=== PATIENT | female | born 1975 | race Caucasian/White ===

== ENCOUNTER 2025-06-27 09:51 | Outpatient (REF) | payer OTHER, SELFPAY ==
--- NOTE | ~2025-06-27 | XR_ITS ---
EXAMINATION: XR ELBOW 3 VIEWS RIGHT HISTORY: M19.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 FINDINGS: Three views of the right elbow are submitted. Osseous mineralization is normal. There is no fracture or dislocation. The joint spaces are preserved. The soft tissues are unremarkable. XR/XR elbow RT min 3V IMPRESSION: Unremarkable examination of the right elbow. Electronically signed by: Duglas Aquino MD 06/27/2025 11:07 AM EDT
[2025-06-27 12:36] LABS: Uric Acid 5.6 mg/dL (2.4-5.7)
--- OUTSIDE RECORDS SUMMARY | 2025-06-27 13:01 | XMS_ITS ---
Author Name [facility] Organization Unknown Care Team Organization Name Specialty Phone Email Start Date End [facility] Nevaeh Lundberg Primary Care 06/08/2023 04/23/2024 [facility] Hemalatha Duval Primary Care 07/13/20222023
== END 2025-06-27 09:52 | disposition home or self-care (01) ==
LOC: HO.XRAY 09:51
PROVIDERS: PCP Internal Medicine; Visit Provider Anesthesiology
DX: M19.021 Primary osteoarthritis, right elbow (principal); M35.3 Polymyalgia rheumatica; M10.9 Gout, unspecified
CPT/HCPCS: 36415; 73080; 84550; 85652; 86200; 86431

== ENCOUNTER 2025-06-27 09:51 | Outpatient (AMB) | payer OTHER, SELFPAY ==
--- NOTE | 2025-06-27 09:52 | A.OFFVIS_ITS ---
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 She reports this pain occurs to her as a flares up. She reports that she was under care of primary care physician and diagnosis of polymyalgia was established, however the patient Nevro went for ESR nor citrullinated peptide was tested. The patient never saw a medical researcher. Because of her pain she can not sleep normally. She is able to do activities of daily living she is able to take care of herself and she can function normally. 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 Weather changes in movements aggravate her pain. Heat application topical medication and oral medications make her pain slightly better. She never had physical therapy for this condition. In terms of tissue damage he describes her pain as dull aching heavy tiring and exhausting sensation. She received transforaminal epidural steroid injection on the right however she denies any help from this procedure. She was told that she has cervical disc herniation. She also went for physical therapy for neck but Nevro for presumable polymyalgia rheumatica. She had injections in the elbow area but it was not image guided. Her past medical history significant for headaches hypertension and depression. Past surgical history significant for and gallbladder surgery. She admits smoking cigarettes she stated that she stopped 9 days ago. When she is 1 month without cigarettes we can consider her on the way to smoke free. However this time she is still considered to be smoker. She admits alcohol, she admits coffee caffeinated beverages she denies recreational drugs. Review of Systems Const All systems reviewed & are unremarkable except as noted in HPI and below ENT Reports Normal hearing present Neuro Reports Normal hearing present, Denies Abnormal speech present, Denies confusion and Denies Sensory deficit (Neuro) Psych Denies confusion Physical Exam Vital Signs: Last Vital Signs Pulse 94 06/27/25 09:53 Resp 16 06/27/25 09:53 BP 145/83 H 06/27/25 09:53 Pulse Ox 97 06/27/25 09:53 Oxygen Delivery Method Room Air 06/27/25 09:53 BMI result Body Mass Index 32.9 Const General: no acute distress; No confusion Nutritional Appearance: obese morbidly obese Orientation/consciousness: patient oriented x3 and No confusion Eyes General: appearance normal, both eyes and all related structures Pupils: Equal, round and reactive pupils present EOM: EOMs intact bilaterally Neck Neck: Yes full ROM Chest Chest palpation & inspection: normal inspection of the chest Resp Effort & Inspection: normal respiratory effort, able to speak in complete sentences, normal respiratory pattern, no audible wheezes and no cough Cardio Jugular venous distension: no JVD GI Inspection: Yes normal to inspection Neuro General: patient oriented x3, gait normal and No confusion Cranial nerves: Yes CN's II-XII intact bilaterally, Yes Equal, round and reactive pupils present, Yes Normal hearing present and Yes Ability to bilaterally elevate shoulders present Speech: No Abnormal speech present Gait exam (Neuro): Normal gait present Motor exam (neuro): 5/5 motor strength present throughout Sensory Exam: No Sensory deficit (Neuro) Extrem General: No pedal edema Psych Speech and movement: Normal speech and movement present Affect: normal affect Attitude: cooperative Thought process: Normal thought process present Thought content: Normal thought content present Insight: Good insight present (Psych) Judgement: Good judgement present (Psych) Assessment & Plan Assessment & Plan (1) Polymyalgia rheumatica: Code(s): M35.3 - Polymyalgia rheumatica Category: Medical (2) Gout: Code(s): M10.9 - Gout, unspecified Category: Medical (3) Elbow arthritis: Code(s): M19.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 To establish the diagnosis I would need to see the citrullinated peptide level elevated and ESR elevated as well. I also suspect that this patient might have gout diagnosis. I you will refer this patient to medical researcher. Meanwhile I sent patient for elbow x-ray. I will see her here in 2 weeks and if there are any arthritic changes in the elbow I will be able to schedule her for intra-articular steroids injection image guided. Orders: Orders Cyclic Citrullinated Peptide Today M35.3 - Polymyalgia rheumatica Uric Acid, 24Hr Urine Group Today M10.9 - Gout, unspecified XR elbow RT min 3V Today M19.029 - Primary osteoarthritis, unspecified elbow Erythrocyte Sedimentation Rate Today M35.3 - Polymyalgia rheumatica Rheumatoid Factor Today M35.3 - Polymyalgia rheumatica Uric Acid Today M10.9 - Gout, unspecified Referrals Rheumatology Referral M10.9 - Gout, unspecified, M35.3 - Polymyalgia rheumatica Patient Instructions: I here by testify that I spent 45 minutes in conversation with this patient as well as planning her care and organizing this note. Coding Level of Care Code New Pt Level 4 (37339) Diagnoses Polymyalgia rheumatica M35.3 Gout M10.9 Elbow arthritis M19.029
[2025-06-27 09:53] VITALS: BP 145/83; PULSE 94; RESP 16; O2SAT 97; BMI 32.9
--- OUTSIDE RECORDS SUMMARY | 2025-06-27 11:18 | XMS_ITS | Clinical Summary ---
Author Organization [address] [facility] Address [address] [place] [address] Phone Care Team Providers Care Eap Specialist Name Role Phone Maria Eugenia Smith MD Primary Care Provider [phone] Allergies Active Allergy Reactions Criticality Noted Date Comments Amoxicillin Rash 06/08/2024 Amoxicillin [Amoxicillin Trihydrate Penicillins Rash 01/14/2006 rash Medications ibuprofen (ADVIL,MOTRIN) 800 mg tabletIndicati ons:prescribed by Juan Jose Self PA-c Take 1 tablet (800 mg total) by mouth every 8 (eight) hours if needed for mild pain. Active acetaminophen (TYLENOL) 500 mg tabletIndicati ons:juan jose self PA-c Take 2 tablets (1,000 mg total) by mouth every 6 (six) hours if needed for mild pain. Active amLODIPine (NORVASC) 5 mg tablet Take 1 tablet (5 mg total) by mouth 1 (one) time each day. 30 each 2 5 05/29/20 26 Active predniSONE (DELTASONE) 20 mg tablet Take 3 tablets daily x 3 days, then 2 tablets daily x 3 days then 1 tablet daily x 3 days 18 tablet 5 Active ergocalciferol (VITAMIN D-2) 1,250 mcg (50,000 unit) capsule Take 1 capsule (50,000 Units total) by mouth. 4 Active hydrOXYzine HCL (ATARAX) 25 mg tablet Take 1 tablet (25 mg total) by mouth 3 (three) times a day if needed for anxiety. for up to 360 days 05/29/20 25 Discontinued amLODIPine (NORVASC) 5 mg tablet TAKE 1 TABLET BY MOUTH EVERY DAY 90 tablet 1 5 05/29/20 25 Discontinued Active Problems Problem Noted Date Diagnosed Date Class 1 obesity 06/26/2025 HTN (hypertension), benign 05/29/2025 Class 1 obesity due to exces s calories without serious comorbidity with body mass index (BMI) of 33.0 to 33.9 in adult 10/22/2024 Panic disorder 06/07/2024 Bipolar 2 disorder ([facility] V24, [facility] V28) Anxiety 06/07/2024 Elevated blood pressure reading 11/17/2020 Fibroadenoma of breast 04/15/2011 Bipolar I disorder ([facility] V24, [facility] V28) Encounters Date Type Department Care Team Description 05/29/2025 2:00 PM EDT [facility] [address] [facility] [place] [address] She Beard, RENATO Polymyalgia ([facility] V24) (Primary Dx); Other fatigue; Generalized weakness; Blurry vision; HTN (hypertension), benign; Polyarthralgia; Vitamin D deficiency; Acute nonintractable headache, unspecified headache type from Last 3 Months Immunizations Immunization Administration Dates Next Due Influenza trivalent, 0.5mL, preservative free (Fluarix; FluLaval; Fluzone) ages 6mo and older (Afluria) 3 years and older 09/22/2024 Surgical History Surgery Date Site/Laterality Comments SECTION PROCEDURE: [place] DELIVERY ONLY; COMMENT: c/s x1 TUBAL LIGATION PROCEDURE: HISTORICAL TUBAL LIGATION OTHER SURGICAL HISTORY PROCEDURE: KS LAPS TX ECTOPIC PREG W/O SALPING&/OOPHORECTOMY; COMMENT: left ectopic with salpingectomy CHOLECYSTECTOMY PROCEDURE: HISTORICAL CHOLECYSTECTOMY SECTION PROCEDURE: HISTORICAL OTHER SURGICAL HISTORY Right PROCEDURE: ---- OTHER ----; COMMENT: removal fallopian tube, ectopic TUBAL LIGATION Left PROCEDURE: HISTORICAL TUBAL LIGATION Medical History Medical History Date Comments Depressive disorder, not els ewhere classified DX:Depressive disorder, not elsewhere classified Historical Medical DX DX:Unspeci fied ectopic Anxiety DX:Anxiety Panic disorder DX:Panic disorde r Bipolar 2 disorder (CMS/HCC V24, CMS/HCC V28) DX:Bipolar 2 disorder (HCC) HPV (human papilloma virus) infection DX:HPV (human papilloma virus) infection; COMMENT: in past Family History Medical History Relation Name Comments Coronary artery disease Father Heart attack Father late 40's Prostate cancer Father NC, hyperten radha, diabetes Cervical cancer Maternal Grandmother Breast cancer Mother Cervical cancer Sister Other: fibromylagia Sister Cancer of Small Bowel Neg Hx Colon cancer Neg Hx Kidney cancer Neg Hx Ovarian cancer Neg Hx Pancreatic cancer Neg Hx Uterine cancer Neg Hx Relation Name Status Comments Father Maternal Grandmother Mother Alive Sister Social History Tobacco Use Types Packs/Day Years Used Date Smoking Tobacco: Every Day Cigarettes Last attempted to quit: 09/05/2011 Smokeless Tobacco: Never Alcohol Use Standard Drinks/Week Comments Yes 0 (1 standard drink = 0.6 oz pur e alcohol) socially Interpersonal Safety Answer Date Record ed Physical Abuse Unrecognized value 08/14/2024 Verbal Abuse Unrecognized value 08/14/2024 Comments No Sex and Gender Information Value Date Recorded Sex Assigned at Female 08/14/2024 12:53 PM EST Legal Sex Female 1:03 PM EST Gender Identity Female 08/14/2024 12:53 PM EST Sexual Orientation Straight 08/14/2024 12 :53 PM EST Obstetrics History * This document contains information received from the source organization and may not represent a complete record from that organization. Para Term AB IAB SAB Ectopic Multiple Livin g Live Births 4 1 1 Date Outcome GA Total Labor Labor/2nd/3rd Weight Sex Type Anes PTL Shameka A1 A5 Name Clin Ectopic Para Last Filed Vital Signs Vital Sign Reading Time Taken Comments Blood Pressure 146/104 05/29/2025 1:59 PM EDT A Pulse 93 05/29/2025 1:59 PM EDT Temperature 36.6 C (97.9 F) 08/14/2024 2:36 PM EST Respiratory Rate 16 08/14/2024 2:48 PM EST Oxygen Saturation 98% 08/14/2024 3:04 PM EST Inhaled Oxygen Concentration - - Weight 82.1 kg (181 lb) 05/29/2025 1:59 PM EDT Height 160 cm (5' 3 ) 05/29/2025 1:59 PM EDT Body Mass Index 32.06 05/29/2025 1:59 PM EDT Plan of Treatment Upcoming Encounters Date Type Department Care Team (Late st Contact Info) Description 07/03/2025 1:30 PM EDT Office Visit Obstetrics & Gynecology - [facility] [address] [place] [id number] Miranda Lancaster, [facility] [address] [place] [phone] 11/26/2025 12:00 PM EDT Office Visit Internal Medicine - [address] [phone] Maria Eugenia Smith MD [address] [place] [address] Health Maintenance Due Date Last Done Comments Breast Cancer Screening 1975 Colorectal Cancer Screening: Colonoscopy 1975 DTaP,Tdap,and Td Vaccines (1 - Tdap) 1994 Hepatitis B Vaccines (1 of 3 - 19+ 3-dose series) 1994 Pneumococcal Vaccine: 50+ Ye ars (1 of 2 - PCV) 1994 Zoster Vaccines (1 of 2) 1994 Social Influencers of Health Screening 08/03/2022 Cholesterol Screening (Lipid Panel) 04/11/2024 04/11/2019 Depression Screening 09/05/2024 11/17/2018 COVID-19 Vaccine (2 - Pfizer risk series) 10/13/2024 09/22/2024 Influenza Vaccine (#1) 2025 09/22/2024 Hypertension/CHF/CAD Annual BMP Blood Test 05/29/2025 03/02/2024 Cervical Cancer Screening: HPV 11/17/2025 11/17/2020 RSV Immunization Adult Patie nts (1 - 1-dose 75+ series) 2050 HIV Screening Completed 07/22/2023 Hepatitis C Screening Completed 07/22/2023 HIB Vaccines Aged Out No longer eligi ble based on patient's age to complete this topic HPV Vaccines Aged Out No longer eligi ble based on patient's age to complete this topic Hepatitis A Vaccines Aged Out No long er eligible based on patient's age to complete this topic IPV Vaccines Aged Out No longer eligi ble based on patient's age to complete this topic MMR Vaccines Aged Out No longer eligi ble based on patient's age to complete this topic Meningococcal ACWY Vaccine Aged Out N o longer eligible based on patient's age to complete this topic Meningococcal B Vaccine Aged Out No l onger eligible based on patient's age to complete this topic RSV Immunization Patients Un petros 20 months Aged Out No longer eligible b ased on patient's age to complete this topic Varicella Vaccines Aged Out No longer eligible based on patient's age to complete this topic Procedures Procedure Name Priority Date/Time Associated Diagnosis Comments CBC WITH AUTO DIFFERENTIAL Routine 05/29/2025 2:27 PM EDT Polymyalgia ([facility] V24) RAHEEL IFA WITH TITER AND PATTERN Routine 05/29/2025 2:27 PM EDT Polymyalgia ([facility] V24) Polyarthralgia BORRELIA BURGDORFERI ANTIBODY Routine 05/29/2025 2:27 PM EDT Polymyalgia ([facility] V24) Polyarthralgia RHEUMATOID FACTOR Routine 05/29/2025 2:2 7 PM EDT Polymyalgia ([facility] V24) Polyarthralgia SEDIMENTATION RATE Routine 05/29/2025 2: 27 PM EDT Polymyalgia ([facility] V24) Polyarthralgia CBC AND DIFFERENTIAL Routine 05/29/2025 2:27 PM EDT Polymyalgia ([facility] V24) THYROID STIMULATING HORMONE WITH REFLEX TO FREE T4 AND FREE T3 Routine 05/29/2025 2:27 PM EDT Polymyalgia ([facility] V24) Other fatigue IRON AND TIBC Routine 05/29/2025 2:27 PM EDT Other fatigue HEMOGLOBIN A1C Routine 05/29/2025 2:27 PM EDT Other fatigue VITAMIN D 25 HYDROXY Routine 05/29/2025 2:27 PM EDT Other fatigue Vitamin D deficiency ANNUAL BMP BLOOD TEST Routine 03/02/2024 HEPATITIS C SCREENING Routine 07/22/2023 HIV SCREENING Routine 07/22/2023 HPV Routine 11/17/2020 LIPID PANEL Routine 04/11/2019 DEPRESSION SCREENING Routine 11/17/2018 from Last 3 Months or Most Recently Relevant to Health Maintenance Results * Thyroid stimulating hormone with reflex to free t4 and free t3 (05/29/2025 2:27 PM EDT) Pathologist [facility] TSH 1.14 0.40 - 4.00 mcIU/mL LAB CHEMISTRY METHOD 05/29/2025 7:33 PM EDT [facility] Blood Venous blood specimen / Unknown Venipuncture / Unknown 05/29/2025 2:27 PM EDT 05/29/2025 2:27 PM EDT She Beard MATERIALS MANAGEMENT CLERK LAB BLOOD ORDERABLES Final Resu lt [facility] [address] [place] [address], [place] [phone] * RAHEEL IFA with titer and pattern (05/29/2025 2:27 PM EDT) Pathologist [facility] RAHEEL Negative Negative 05/31/2025 1:32 PM EDT [facility] Comment:RAHEEL performed by ind irect immunofluorescence (IFA) using HEp-2 substrate. Blood Venous blood specimen / Unknown Venipuncture / Unknown 05/29/2025 2:27 PM EDT 05/29/2025 2:27 PM EDT us She Beard NP LAB BLOOD ORDERABLES Final Resu lt [facility] [address] [place] [address], * (ABNORMAL) CBC auto differential (05/29/2025 2:27 PM EDT) WBC 7.9 4.8 - 10.8 K/mcL LAB HEMETOLOGY METHOD 05/29/2025 6:38 PM EDT [facility] RBC 4.60 3.80 - 4.80 M/mcL LAB HEMETOLOGY METHOD 05/29/2025 6:38 PM EDT [facility] Hemoglobin 14.3 11.5 - 16.0 g/dL LAB HEMETOLOGY METHOD 05/29/2025 6:38 PM EDT [facility] Hematocrit 41.8 35.0 - 47.0 % LAB HEMETOLOGY METHOD 05/29/2025 6:38 PM EDT [facility] MCV 91.1 79.0 - 98.0 FL LAB HEMETOLOGY METHOD 05/29/2025 6:38 PM EDT [facility] MCH 31.2 27.0 - 32.0 pcg LAB HEMETOLOGY METHOD 05/29/2025 6:38 PM EDT [facility] MCHC 34.2 32.0 - 37.0 g/dL LAB HEMETOLOGY METHOD 05/29/2025 6:38 PM EDT [facility] RDW 11.9 11.0 - 15.0 % LAB HEMETOLOGY METHOD 05/29/2025 6:38 PM EDT [facility] Platelets 269 130 - 400 K/mcL LAB HEMETOLOGY METHOD 05/29/2025 6:38 PM EDT [facility] MPV 11.6(H) 7.0 - 11.0 FL LAB HEMETOLOGY METHOD 05/29/2025 6:38 PM EDT [facility] NRBC 0.0 <1.0 % LAB HEMETOLOGY METHOD 05/29[facility]2025 6:[facility] NR[facility] Absolute 0.00 <0.10 K/mcL LAB HEMETOLOGY METHOD 05/29/2025 6:38 PM EDT [facility] Neutrophils Relative 65.5 % LAB HEMETOLOGY METHOD 05/29/2025 6:38 [facility] Lymphocytes Relative 25.4 % LAB HEMETOLOGY METHOD 05/29/2025 6:38 PM [facility] Monocytes Relative 5.2 % LAB HEMETOLOGY METHOD 05/29/2025 6:38 PM [facility] Eosinophils Relative 2.5 % LAB HEMETOLOGY METHOD 05/29/2025 6:38 PM [facility] Basophils Relative 0.9 % LAB HEMETOLOGY METHOD 05/29/2025 6:38 PM [facility] Immature Granulocytes Relative 0.5 % LAB HEMETOLOGY METHOD 05/29/2025 6:38 PM [facility] Neutrophils Absolute 5.19 1.50 - 7.00 K/mcL LAB HEMETOLOGY METHOD 05/29/2025 6:38 PM EDT [facility] Lymphocytes Absolute 2.01 1.00 - 5.00 K/mcL LAB HEMETOLOGY METHOD 05/29/2025 6:38 PM EDT [facility] Monocytes Absolute 0.41 0.20 - 1.00 K/mcL LAB HEMETOLOGY METHOD 05/29/2025 6:38 PM [facility] Eosinophils Absolute 0.20 0.00 - 0.50 K/mcL LAB HEMETOLOGY METHOD 05/29/2025 6:38 PM EDT [facility] Basophils Absolute 0.07 0.00 - 0.20 K/[facility] LAB HEMETOLOGY METHOD 05/29/2025 6:38 PM EDT [facility] Immature Granulocytes Absolute 0.04(H) 0.00 - 0.03 K/[facility] LAB HEMETOLOGY METHOD 05/29/2025 6:38 PM EDT [facility] Blood Venous blood specimen / Unknown Venipuncture / Unknown 05/29/2025 2:27 PM EDT 05/29/2025 2:27 PM EDT She Beard NP LAB BLOOD ORDERABLES Final Resu lt Performing Organization Address City/[facility]/ZIP Co de Phone Number [facility] [address] [place] [address], [place] [phone] * Iron and TIBC (05/29/2025 2:27 PM EDT) [facility] Iron 98 40 - 150 mcg/dL LAB CHEMISTRY METHOD 05/29/2025 7:08 PM EDT [facility] TIBC 364 250 - 450 mcg/dL LAB CHEMISTRY METHOD 05/29/2025 7:08 PM EDT [facility] Iron Saturation 27 15 - 50 % LAB CHEMISTRY METHOD 05/29/2025 7:08 PM EDT [facility] Blood Venous blood specimen / Unknown Venipuncture / Unknown 05/29/2025 2:27 PM EDT 05/29/2025 2:27 PM EDT She Beard NP LAB BLOOD ORDERABLES Final Resu lt [facility] [address] [place] [address], [place] [phone] * Borrelia burgdorferi antibody (05/29/2025 2:27 PM EDT) Pathologist [facility] Lyme Ab Negative Negative LAB CHEMISTRY METHOD 05/30/2025 9:11 AM EDT [facility] Comment: No laboratory evidence of infection with B. burgdorferi (Lyme disease). Negative results may occur in patients recently infected (<=14 days) with B. burgdorferi. If recent infection is suspected, repeat testing on a new sample collected in 7- 14 days is recommended. Blood Venous blood specimen / Unknown Venipuncture / Unknown 05/29/2025 2:27 PM EDT 05/29/2025 2:27 PM EDT She Beard LAB BLOOD ORDERABLES Final Resu lt Performing Organization Address City/[facility]/ZIP Co de Phone Number [facility] [address] [place] [address], [place] [phone] * (ABNORMAL) Vitamin D 25 hydroxy (05/29/2025 2:27 PM EDT) [facility] Vit D, 25-Hydroxy 28.6(L) 30.0 - 80.0 ng/mL LAB CHEMISTRY METHOD 05/29/2025 7:33 PM EDT [facility] Blood Venous blood specimen / Unknown Venipuncture / Unknown 05/29/2025 2:27 PM EDT 05/29/2025 2:27 PM EDT She Beard LAB BLOOD ORDERABLES Final Resu lt Performing Organization Address City/[facility]/ZIP Co de Phone Number [facility] [address] [place] [address], [place] [phone] * Sedimentation rate (05/29/2025 2:27 PM EDT) [facility] Sed Rate 7 0 - 20 mm/hr LAB HEMETOLOGY METHOD 05/29/2025 6:32 PM EDT [facility] Blood Venous blood specimen / Unknown Venipuncture / Unknown 05/29/2025 2:27 PM EDT 05/29/2025 2:27 PM EDT us She Jeanti MATERIALS MANAGEMENT CLERK LAB BLOOD ORDERABLES Final Resu lt [facility] [address] [place] [address], [place] [phone] * Rheumatoid factor (05/29/2025 2:27 PM EDT) [facility] Rheumatoid Factor <10.0 <15.0 I Unit/mL LAB CHEMISTRY METHOD 05/29/2025 7:06 PM EDT [facility] Blood Venous blood specimen / Unknown Venipuncture / Unknown 05/29/2025 2:27 PM EDT 05/29/2025 2:27 PM EDT She Jeanti MATERIALS MANAGEMENT CLERK LAB BLOOD ORDERABLES Final Resu lt Performing Organization Address [facility]/ZIP Co de Phone Number [facility] [address] [place] [address], [place] [phone] * Hemoglobin A1c (05/29/2025 2:27 PM EDT) [facility] Hemoglobin A1C 5.6 <6.5 % LAB CHEMISTRY METHOD 05/29/2025 8:57 PM EDT [facility] Mean Bld Glu Estim. 114 mg/dL LAB CHEMISTRY METHOD 05/29/2025 8:57 PM EDT [facility] Blood Venous blood specimen / Unknown Venipuncture / Unknown 05/29/2025 2:27 PM EDT 05/29/2025 2:27 PM EDT She Jeanti MATERIALS MANAGEMENT CLERK LAB BLOOD ORDERABLES Final Resu lt Performing Organization Address City/[facility]/ZIP Co de Phone Number [facility] [address] [place] [address], [place] [phone] * Annual BMP Blood Test (03/02/2024) [facility] Annual BMP Blood Test Abstracted [facility] Provider HEALTH MAINTENANCE Final Result * HIV Screening (07/22/2023) [facility] HIV Screening Abstracted [facility] Provider HEALTH MAINTENANCE Final Result * Hepatitis C Screening (07/22/2023) [facility] Hepatitis C Screening Abstracted [facility] Provider HEALTH MAINTENANCE Final Result * Cervical Cancer Screening: HPV (11/17/2020) [facility] Cervical Cancer Screening: HPV Negative, abstracted [facility] Provider HEALTH MAINTENANCE Final Result * (ABNORMAL) Lipid panel (04/11/2019) [facility] LDL/HDL Ratio 3 0 - 4 Triglycerides 70 0 - 150 mg/dL Cholesterol 193 0 - 200 mg/dL HDL 58 >=40 mg/dL LDL Cholesterol 121(A) 0 - 100 mg/dL Blood Venous blood specimen / Unknown [facility] Provider LAB BLOOD ORDERABLES Mary l Result * Depression Screening (11/17/2018) [facility] Depression Screening Abstracted [facility] Provider HEALTH MAINTENANCE Final Result from Last 3 Months or Most Recently Relevant to Health Maintenance Insurance * Guarantor: Иван Herrera Account Type Relation to Patient Date of Phone Billing Address Personal/Family Self 1975 [phone] (Work) [address] [place] [address] [facility] [employer] Care Teams Eap Specialist Relationship Specialty Start Date End Date Maria Eugenia Smith MD [address] [place] [phone] PCP - General Internal Medicine 05/27/25
== END 2025-06-27 10:28 | disposition home or self-care (01) ==
PROVIDERS: PCP Internal Medicine; Visit Provider Anesthesiology
DX: M35.3 Polymyalgia rheumatica (principal); M10.9 Gout, unspecified; M19.029 Primary osteoarthritis, unspecified elbow
CPT/HCPCS: 99204

== ENCOUNTER → 2025-06-27 10:41 | Outpatient (BNV) | payer OTHER, SELFPAY | PROVIDERS: PCP Internal Medicine; Visit Provider Radiology Diagnostic Radiology | DX: M19.021 Primary osteoarthritis, right elbow (principal) | CPT/HCPCS: 73080 ==

== ENCOUNTER 2025-07-25 09:13 | Outpatient (AMB) | payer OTHER, SELFPAY ==
--- NOTE | 2025-07-25 09:15 | MHC.OFFVIS ---
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 She did not report to me that in the past she was treated at [facility] for radiculopathy cervical. The upper extremities pain he experiences in the elbows in his shoulders and in the arms could be explained by cervical pathology. In the past she received cervical epidural steroid injection which did not help her pain. She maybe a candidate for neurosurgery. Unfortunately I do not have any studies of her cervical spine, she had an MRI in the past. Besides I sent her for citrullinated peptide and ESR and those were negative and therefore she does not have rheumatoid arthritis. Her uric acid level is also normal and therefore she does not have gout problem. We agreed that I will schedule this patient for the appointment with me in 2 weeks. She promised to bring the report from the [facility] as well as the disc of the MRI she had at the [facility]. After I will examined those I may refer her to Neurosurgery. Prior. is very pleasant 50 years old female who presents in my office with complains on pain in bilateral shoulders pain in bilateral knees pain in the right elbow. She reports this pain occurs to her as a flares up. She reports that she was under care of primary care physician and diagnosis of polymyalgia was established, however the patient Nevro went for ESR nor citrullinated peptide was tested. The patient never saw a open hearth laborer. Because of her pain she can not sleep normally. She is able to do activities of daily living she is able to take care of herself and she can function normally. 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 Weather changes in movements aggravate her pain. Heat application topical medication and oral medications make her pain slightly better. She never had physical therapy for this condition. She also went for physical therapy for neck but Never for presumable polymyalgia rheumatica. She had injections in the elbow area but it was not image guided. Her past medical history significant for headaches hypertension and depression. Past surgical history significant for and gallbladder surgery. She admits smoking cigarettes she stated that she stopped 9 days ago. When she is 1 month without cigarettes we can consider her on the way to smoke free. However this time she is still considered to be smoker. She admits alcohol, she admits coffee caffeinated beverages she denies recreational drugs. Review of Systems Const All systems reviewed & are unremarkable except as noted in HPI and below ENT Reports Normal hearing present Neuro Reports Normal hearing present, Denies Abnormal speech present, Denies confusion and Denies Sensory deficit (Neuro) Psych Denies confusion Physical Exam Vital Signs: Last Vital Signs Pulse 88 07/25/25 09:16 Resp 16 07/25/25 09:16 BP 136/82 07/25/25 09:16 Pulse Ox 99 07/25/25 09:16 Oxygen Delivery Method Room Air 07/25/25 09:16 BMI result Body Mass Index 33.3 Const General: no acute distress; No confusion Nutritional Appearance: obese morbidly obese Orientation/consciousness: patient oriented x3 and No confusion Eyes General: appearance normal, both eyes and all related structures Pupils: Equal, round and reactive pupils present EOM: EOMs intact bilaterally Neck Neck: Yes full ROM Chest Chest palpation & inspection: normal inspection of the chest Resp Effort & Inspection: normal respiratory effort, able to speak in complete sentences, normal respiratory pattern, no audible wheezes and no cough Cardio Jugular venous distension: no JVD GI Inspection: Yes normal to inspection Neuro General: patient oriented x3, gait normal and No confusion Cranial nerves: Yes CN's II-XII intact bilaterally, Yes Equal, round and reactive pupils present, Yes Normal hearing present and Yes Ability to bilaterally elevate shoulders present Speech: No Abnormal speech present Gait exam (Neuro): Normal gait present Motor exam (neuro): 5/5 motor strength present throughout Sensory Exam: No Sensory deficit (Neuro) Extrem General: No pedal edema Psych Speech and movement: Normal speech and movement present Affect: normal affect Attitude: cooperative Thought process: Normal thought process present Thought content: Normal thought content present Insight: Good insight present (Psych) Judgement: Good judgement present (Psych) Results Reviewed Results Reviewed: XR ELBOW 3 VIEWS RIGHT HISTORY: M19.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 FINDINGS: Three views of the right elbow are submitted. Osseous mineralization is normal. There is no fracture or dislocation. The joint spaces are preserved. The soft tissues are unremarkable. IMPRESSION: Unremarkable examination of the right elbow. 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 The citrullinated peptide level and ESR are normal. Uric acid is also normal. Unlikely this is draining rheumatologic condition. All her conditions could come from the cervical pathology. I requested her to bring me the MRI disc and MRI report from the [facility] Radiology. She reported that she can not do it and after that we will examined the report and decide on possible referral to Neurosurgery. Coding Level of Care Code Est Pt Level 3 (91396) Diagnoses Polymyalgia rheumatica M35.3 Gout M10.9 Elbow arthritis M19.029
[2025-07-25 09:16] VITALS: BP 136/82; PULSE 88; RESP 16; O2SAT 99; BMI 33.3
== END 2025-07-25 09:50 | disposition home or self-care (01) ==
LOC: HO.PMC 09:14
PROVIDERS: PCP Internal Medicine; Visit Provider Anesthesiology
DX: M35.3 Polymyalgia rheumatica (principal); M10.9 Gout, unspecified; M19.029 Primary osteoarthritis, unspecified elbow
CPT/HCPCS: 99213

== ENCOUNTER 2025-08-07 13:56 | Outpatient (AMB) | payer OTHER, SELFPAY ==
--- NOTE | 2025-08-07 08:36 | A.SPINEOV_ITS ---
Vital Signs 08/07/25 14:12 Height 5 ft 3 in Weight 185 lb BMI 32.8 Intake Visit Reasons: Neck pain Intake Note: Ms. Garcia is here today c/o neck pain that radiate to the right elbow. Armed Custom Protection Officer Required: No Allergies amoxicillin Allergy (Mild, Verified 08/07/25 14:13) Unknown Penicillins Allergy (Mild, Verified 08/07/25 14:13) Unknown Physical Exam Vital Signs: BMI result Body Mass Index 32.8 Assessment & Plan Assessment & Plan (1) Radiculopathy, cervical: Code(s): M54.12 - Radiculopathy, cervical region Category: Medical Plan Dear Dr. Helton, Thank you for referring Sana to our office today. She is a pleasant 50-year-old female who comes in today for evaluation of neck pain and shooting pain into her right upper extremity. She reports that she has had neck pain for the past 1 year, which gradually worsened and began to encompass her right arm as well. She denies any known inciting incident for the pain. She initially attempted to treat this via cortisone injections with out colleagues at [facility], however reports little to no relief from these injections. As the months pr ogress she ended up getting custody of her grandson and began significantly increasing her activity throughout the day. About 2 months ago she felt that her neck and right arm pain became severe, and she began to gradually start to lose strength in her right arm. In addition to this she became unable to fully extend her right arm without experiencing severe pain, and began experiencing reduced sensation near the right-sided 4th and 5th fingers. In addition to this she states that she is beginning to lose dexterity of her right hand in his finding it difficult to type at her keyboard for work. When describing her pain she states it starts in her neck shoots into her posterior shoulder travels down the right triceps through the right-sided elbow and terminates near the 4th and 5th fingers on the right side. At times she will experience tingling as well throughout her entire hand. As of about a week ago she has started to experience shooting pain down her left upper extremity as well, and does report occasional similar finger tingling on this side when her pain is severe. She states that she has attempted physical therapy since onset of her pain, however was discharged from PT due to severe exacerbations of pain when attempting stretching/exercise. She has been utilizing Biofreeze, Tylenol, ibuprofen to try and help mitigate her pain. In addition to this she has been prescribed gabapentin, oxycodone, and prescription strength ibuprofen for this issue. She does not report any meaningful relief of her pain despite these medications. She denies any issues with bowel/bladder incontinence, gait, or balance issues. PMH: Asthma, anxiety, high blood pressure. History of , tubal ligation, cholecystectomy. She denies any cardiac or pulmonary issues. No issues with kidney/liver per report. Social hx: The patient reports no nicotine use, and no substance use. Medications: See [employer] list. Allergies: Amoxicillin, penicillins. Physical exam: On examination the patient is in obvious distress holding her right arm with the left. She is unable to fully extend her right arm without significant pain. 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 The rest of her upper extremity strength is 5/5, however she does elicit significant pain to full strength testing of the right upper extremity. Her bilateral lower extremity strength is 5/5. She walks with a non antalgic & non spastic gait. She uses no assistive devices to ambulate. Diminished triceps reflex on the right-hand side. The rest of her reflexes appear normal. The patient reports hypoesthesia primarily near the right 4th and 5th fingers during examination. She denies any other significant sensational deficits. (-) Mcfadden's, (-) clonus, (-) bilateral straight leg raise. Imaging review: MRI of the cervical spine completed at [facility] shows a disc herniation at C6-7 partially effacing the right side of the ventral spinal cord, causing severe right-sided foraminal stenosis. Impression: Pleasant 50-year-old female who comes in today for evaluation of neck pain and shooting pain into her right upper extremity. Her clinical picture is most consistent with a right-sided C7 radiculopathy with progressive neurological deficits secondary to the disc herniation seen at C6-7 causing severe compression of the right C7 nerve. This matches the dermatomal distribution of her pain. I reviewed the patient's case with my attending neurosurgeon Dr. Odonnell who recommended that the patient undergo C6-7 ACDF to treat this. We considered having her added onto our surgical schedule next week, and moving a less acute patient off the schedule, but the patient insisted that she cannot have surgery until after / . We did extensively explained to the patient that if her weakness and loss of sensation has been progressively worsening over the course of the last 2 months, it is likely that it will continue to progress and worsen the longer that we postpone surgery. Despite this, the patient still stated that she would prefer to wait for surgical intervention until September. We also explained to the patient that the primary goal of surgery would be to treat her pain, and we can not guarantee any return of sensation and motor function as we do not know the extent of nerve damage already sustained by her disc herniation. She understands and agrees to this. We have tentatively scheduled her for 09/12/2024. The patient was given risk and benefits of surgery including but not limited to infection, hematoma, nerve injury, durotomy, weakness, persistent pain. We discussed that if undergoing anterior cervical fusion there may be trachea or esophageal injury, hoarseness, or difficulty swallowing. There is a risk of pseudoarthrosis or instrumentation failure if undergoing cervical fusion. We also reviewed the option to continue with conservative treatment and patient wishes to proceed with surgery. They are aware they should stop NSAIDs 7 days prior to surgery. All questions were answered to the best of our ability. If there is anything about this patient's medical history that we have overlooked or concerns you have about us proceeding with surgery we would appreciate any input you can offer. Thank you for allowing us to care for your patient. The total time spent with this visit with this patient was 45 minutes reviewing history, physical exam, MRI imaging review, and implementation of treatment plan or further diagnostic testing Beau Odonnell MD,PhD [facility] Coding Level of Care Code New Pt Level 4 (80633) Diagnoses Radiculopathy, cervical M54.12
[2025-08-07 14:12] VITALS: BMI 32.8
--- OUTSIDE RECORDS SUMMARY | 2025-08-07 16:42 | XMS_ITS | Encounter Summary ---
Author Organization [facility] [place] [address] Care Team Providers Care Riprap Placing Supervisor Name Role Phone Maria Eugenia Smith MD Primary Care Provider [phone] Encounter Details Date Type Department Care Team ([facility] Contact Info) Description 07/05/2025 [facility] [address] [place] [address] Julian Odell NP [address] [place] [address] Social History Tobacco Use Types Packs/Day Years Used Date Smoking Tobacco: Former Cigarettes 0.5 Q uit: 09/05/2011 Smokeless Tobacco: Never Alcohol Use Standard Drinks/Week Comments Yes 0 (1 standard drink = 0.6 oz pur e alcohol) socially Housing Instability Answer Date Recorde d Are you worried that in the next 2 months you may not have stable housing? No 07/02/2025 Food Access & Nutrition Answer Date Rec orded Do you have access to a vari ety of food including fruits and vegetables? Yes 07/02/2025 Health Literacy Answer Date Recorded How often do you need to hav e someone help you when you read instructions, pamphlets, or other written material from your doctor or pharmacy? Never 07/02/2025 Caregiver: How often do you need to have someone help you when you read instructions, pamphlets, or other written material from your doctor or pharmacy? Not on file 07/02/2025 Financial Risk Answer Date Recorded How hard is it for you to pa y for the very basics like food, housing, medical care, and air conditioning / heating? Somewhat hard 07/02/2025 Transportation Answer Date Recorded Has the lack of transportati on kept you from meetings, work, or from getting things needed for daily living? No Has the lack of transportati on kept you from medical appointments or from getting medications? No 07/02/2025 Social Isolation Answer Date Recorded How often do you feel lonely or isolated from th ose around you? Never 07/02/2025 Dependent Care Answer Date Recorded Do you need help finding or paying for care for your loved ones. For example, child welfare specialist or elderly care for an older adult? No 07/02/2025 Education Answer Date Recorded Do you think completing more education or training, like finishing a GED, going to college, or learning a trade, would be helpful for you? No 07/02/2025 Employment and Income Answer Date Recor ded During the last four weeks, have you been actively looking for work? No 07/02/2025 Living Situation Answer Date Recorded What is your living situation? Unrecognized valu e 07/02/2025 Interpersonal Safety Answer Date Record ed Physical Abuse Unrecognized value 08/14/2024 Verbal Abuse Unrecognized value 08/14/2024 Comments No Sex and Gender Information Value Date Recorded Sex Assigned at Female 08/14/2024 12:53 PM EST Legal Sex Female 1:03 PM EST Gender Identity Female 08/14/2024 12:53 PM EST Sexual Orientation Straight 08/14/2024 12 :53 PM EST documented as of this encounter Plan of Treatment Upcoming Encounters Date Type Department Care Team (Late st Contact Info) Description 11/26/2025 12:00 PM EDT Office Visit Internal Medicine - [facility] [address], [place] [phone] Maria Eugenia Smith MD [address] [place], [place] 12/12/2025 9:00 AM EDT Office Visit Bariatric Surgery - [place] [address] [place] [phone] Lorrie Peralta PA [address] [place] [phone] 12/30/2025 2:00 PM EDT Office Visit Obstetrics & Gynecology - [address] [phone] Jeff Flores CNM [address] [place] [address] documented as of this encounter Visit Diagnoses Not on filedocumented in this encounter Additional Health Concerns Assessment Noted Time PHQ-9 Depression Total Score: 13 025 6:06 PM EDT documented as of this encounter Care Teams Riprap Placing Supervisor Relationship Specialty Start Date End Date Maria Eugenia Smith MD [address] [place] [address] PCP - General Internal Medicine 05/27/25 documented as of this encounter
--- OUTSIDE RECORDS SUMMARY | 2025-08-07 16:42 | XMS_ITS | Encounter Summary ---
Author Organization [facility] [place] [address] Care Team Providers Care Flight Dynamicist Name Role Phone Maria Eugenia Smith MD Primary Care Provider [phone] Encounter Details Date Type Department Care Team ([facility] Contact Info) Description 06/28/2025 Results Follow-Up Internal Medicine - [place] [address] [place] [phone] Cornelia Dietrich [place] Social History Tobacco Use Types Packs/Day Years Used Date Smoking Tobacco: Every Day Cigarettes 0.5 Last attempted to quit: 09/05/2011 Smokeless Tobacco: [...] for your loved ones. For example, child psychologist or elderly care for an older adult? [...] PM EDT Office Visit Internal Medicine - [facility] [address] [place], [place] [phone] Maria Eugenia Smith MD [address] [place], [place] 12/12/2025 9:00 AM EDT Office Visit Bariatric Surgery - [place] [address] [place] [phone] Lorrie Peralta PA [address] [place] [phone] 12/30/2025 2:00 PM EDT Office Visit Obstetrics & Gynecology - [address] [phone] Jeff Flores, [facility] [address] [place] [address] documented as of this encounter Visit Diagnoses Not on filedocumented in this encounter Care Teams Flight Dynamicist Relationship Specialty Start Date End Date Maria Eugenia Smith MD [address] [place] [phone] PCP - General Internal Medicine 05/27/25 documented as of this encounter
--- OUTSIDE RECORDS SUMMARY | 2025-08-07 16:42 | XMS_ITS | Clinical Summary ---
Author Organization [facility] Address [address] [place] [address] Phone Care Team Providers Care Food And Beverage Operations Manager Name Role Phone Maria Eugenia Smith MD Primary Care Provider [phone] Allergies Active Allergy Reactions Criticality Noted Date Comments Amoxicillin Rash 06/08/2024 Amoxicillin [Amoxicillin Trihydrate Penicillins Rash 01/14/2006 rash Medications ibuprofen (ADVIL,MOTRIN) 800 mg tabletIndicatio ns:prescribed by Juan Jose Self PA-c Take 1 tablet (800 mg total) by mouth every 8 (eight) hours if needed for mild pain. Active acetaminophen (TYLENOL) 500 mg tabletIndicatio ns:juan jose self PA-c Take 2 tablets (1,000 [...] (50,000 Units total) by mouth. 4 Active Ventolin HFA 90 mcg/actuation inhaler INHALE 2 PUFFS EVERY 6 HOURS FOR SHORTNESS OF BREATH OR WHEEZING FOR 10 DAYS Active azithromycin (ZITHROMAX) 250 mg tablet TAKE 2 TABLETS BY MOUTH TODAY, THEN TAKE 1 TABLET DAILY FOR 4 DAYS DIRECTED Active benzonatate (TESSALON) 200 mg capsule TAKE 1 CAPSULE BY MOUTH TWICE A DAY NEEDED FOR COUGH FOR 7 DAYS Active fezolinetant (Veozah) 45 mg tabletIndicatio ns:Hot flashes Take 45 mg by mouth 1 (one) time each day. 30 tablet 3 Active Active Problems Problem Noted Date Diagnosed Date Class 1 obesity 06/26/2025 HTN (hypertension), benign 05/29/2025 Class 1 obesity due to exces s calories without serious comorbidity with body mass index (BMI) of 33.0 to 33.9 in adult 10/22/2024 Panic disorder 06/07/2024 Bipolar 2 disorder ([facility] V24, [facility] V28) Anxiety 06/07/2024 Elevated blood pressure reading 11/17/2020 Fibroadenoma of breast 04/15/2011 Bipolar I disorder ([facility] V24, [facility] V28) Encounters Date Type Department Care Team Description 07/18/2025 Telephone Obstetrics and Gynecology - [address] [phone] Miranda Lancaster CNM 07/08/2025 Telephone Obstetrics and Gynecology - [address] [phone] Miranda Lancaster CNM 07/05/2025 [facility] [phone] Julian Odell NP 07/03/2025 1:30 PM EDT Office Visit Obstetrics & Gynecology - [address] [phone] Miranda Lancaster CNM Hot flashes (Primary Dx) 06/28/2025 Results Follow-Up Internal Medicine - [facility] [address] [place], [place] [phone] KarloCornelia power [place] 05/29/2025 2:00 PM EDT Office Visit Internal Medicine - [facility] [address] [facility] [place] [phone] She Beard, RENATO Polymyalgia ([facility] V24) (Primary Dx); Other fatigue; Generalized weakness; Blurry vision; HTN (hypertension), benign; Polyarthralgia; Vitamin D deficiency; Acute nonintractable headache, unspecified headache type from Last 3 Months Immunizations Immunization Administration Dates Next Due Influenza trivalent, 0.5mL, preservative free (Fluarix; FluLaval; Fluzone) ages 6mo and older (Afluria) 3 years and older 09/22/2024 Surgical History Surgery Date Site/Laterality Comments SECTION PROCEDURE: IA DELIVERY ONLY; COMMENT: c/s x1 TUBAL LIGATION PROCEDURE: HISTORICAL TUBAL LIGATION OTHER SURGICAL HISTORY PROCEDURE: IA LAPS [place] ECTOPIC PREG W/O SALPING&/OOPHORECTOMY; COMMENT: [...] (CMS/HCC V24, CMS/HCC V28) DX:Bipolar 2 disorder ([facility]) HPV (human papilloma virus) infection DX:HPV (human papilloma virus) infection; COMMENT: in past Family History Medical History Relation Name Comments Coronary artery disease Father Heart attack Father late 40's Prostate cancer Father [place], hyperten radha, diabetes Cervical cancer Maternal Grandmother Breast cancer Mother bilateral rachel st Cervical cancer Sister 1 Other: fibromylagia Sister 1 Breast cancer Sister 2 Cancer of Small Bowel Neg Hx Colon cancer Neg Hx Kidney cancer Neg Hx Ovarian cancer Neg Hx Pancreatic cancer Neg Hx Uterine cancer Neg Hx Relation Name Status Comments Father Maternal Grandmother Mother Alive Sister 1 Sister 2 Alive Social History Tobacco Use Types Packs/Day Years Used Date Smoking Tobacco: Former Cigarettes 0.5 Q uit: 09/05/2011 Smokeless Tobacco: Never Tobacco Cessation:Counseling Given: Not Answered Alcohol Use Standard Drinks/Week Comments Yes 0 [...] your loved ones. For example, child welfare consultant or elderly care for an older adult? [...] Sign Reading Time Taken Comments Blood Pressure 146/86 07/03/2025 1:36 PM EDT Pulse 100 07/03/2025 1:36 PM EDT Temperature 36.6 C (97.9 F) 08/14/2024 2:36 PM EST Respiratory Rate 16 08/14/2024 2:48 PM EST Oxygen Saturation 98% 08/14/2024 3:04 PM EST Inhaled Oxygen Concentration - - Weight 86 kg (189 lb 9.6 oz) 07/03/2025 1:36 PM EDT Height 160 cm (5' 3 ) 07/03/2025 1:36 PM EDT Body Mass Index 33.59 07/03/2025 1:36 PM EDT Plan of Treatment Upcoming Encounters Date Type Department Care Team (Late st Contact Info) Description 11/26/2025 12:00 PM EDT Office Visit Internal Medicine - [address] [phone] Maria Eugenia Smith MD [address] [place] [address] 12/12/2025 9:00 AM EDT Office Visit Bariatric Surgery - [facility] [address] [place] [address] Lorrie Peralta PA [address] [place] [phone] 12/30/2025 2:00 PM EDT Office Visit Obstetrics & Gynecology - [facility] [address] [place] [address] Jeff Flores, CNM [address] [place] [address] Health Maintenance Due Date Last Done Comments Breast Cancer Screening 1975 Colorectal Cancer Screening: Colonoscopy 1975 DTaP,Tdap,and Td Vaccines (1 - Tdap) 1994 Hepatitis B Vaccines (1 of 3 - 19+ 3-dose series) 1994 Pneumococcal Vaccine: 50+ Years (1 of 2 - PCV) 1994 Zoster Vaccines (1 of 2) 1994 Cholesterol Screening (Lipid Panel) 04/11/2024 04/11/2019 COVID-19 Vaccine (2 - Pfizer risk series) 10/13/2024 09/22/2024 Hypertension/CHF/CAD Annual BMP Blood Test 05/29/2025 03/02/2024 Cervical Cancer Screening: HPV 11/17/2025 11/17/2020 Social Influencers of Health Screening 07/02/2026 07/02/2025 RSV Immunization Adult Patients (1 - 1-dose 75+ series) 2050 HIV Screening Completed 07/22/2023 Hepatitis C Screening Completed 07/22/2023 Influenza Vaccine Completed 06/12/2025, 09/22/2024 Depression Screening Completed 07/02/2025, 11/17/2018 HIB Vaccines Aged Out No longer eligi [...] to complete this topic RSV Immunization Patients Under 20 months Aged Out No longer eligible b ased on patient's age to complete this topic Varicella Vaccines Aged Out No longer eligible based on patient's age to complete this topic Procedures Procedure Name Priority Date/Time Associated Diagnosis Comments EXTERNAL CLINICAL LAB 07/03/2025 EXTERNAL CLINICAL LAB 06/28/2025 EXTERNAL XRAY REPORT 06/27/2025 EXTERNAL XRAY REPORT 06/27/2025 CBC WITH AUTO DIFFERENTIAL Routine 05/29/2025 2:27 PM EDT Polymyalgia (CMS/HCC V24) RAHEEL IFA WITH TITER AND PATTERN Routine 05/29/2025 2:27 PM EDT Polymyalgia (CMS/HCC V24) Polyarthralgia BORRELIA BURGDORFERI ANTIBODY Routine 05/29/2025 2:27 PM EDT Polymyalgia (CMS/HCC V24) Polyarthralgia RHEUMATOID FACTOR Routine 05/29/2025 2:2 7 PM EDT Polymyalgia (CMS/HCC V24) Polyarthralgia SEDIMENTATION RATE Routine 05/29/2025 2: 27 PM EDT Polymyalgia (CMS/HCC V24) Polyarthralgia CBC AND DIFFERENTIAL Routine 05/29/2025 2:27 PM EDT Polymyalgia (CMS/HCC V24) THYROID STIMULATING HORMONE WITH REFLEX TO FREE T4 AND FREE T3 Routine 05/29/2025 2:27 PM EDT Polymyalgia (CMS/HCC V24) Other fatigue IRON AND TIBC Routine [...] Recently Relevant to Health Maintenance Results * External clinical lab (07/03/2025) Only the most recent of2 resultswithin the time period is included. Provider [facility] LAB BLOOD ORDERABLES Fin al Result * External Xray Report (06/27/2025) Only the most recent of2 resultswithin the time period is included. Anatomical Region Laterality Modality Radiographic Blanka ging Provider [facility] IMG XR PROCEDURES Final Result * Thyroid stimulating hormone with reflex to free t4 and free t3 (05/29/2025 2:27 PM EDT) Pathologist [facility] TSH 1.14 0.40 - 4.00 mcIU/mL LAB CHEMISTRY METHOD 05/29/2025 7:33 PM EDT [facility] Blood Venous blood specimen / Unknown Venipuncture / Unknown 05/29/2025 2:27 PM EDT 05/29/2025 2:27 PM EDT She Beard NP LAB BLOOD ORDERABLES Final Resu lt [facility] [address] [place] [address], [place] [phone] * RAHEEL IFA with titer and pattern (05/29/2025 2:27 PM EDT) Pathologist [facility] RAHEEL Negative Negative 05/31/2025 1:32 PM EDT [facility] Comment:RAHEEL performed by ind irect immunofluorescence (IFA) using HEp-2 substrate. Blood Venous blood specimen / Unknown Venipuncture / Unknown 05/29/2025 2:27 PM EDT 05/29/2025 2:27 PM EDT us She Beard NP LAB BLOOD ORDERABLES Final Resu lt [facility] [address] [place] [address], [place] [phone] * (ABNORMAL) CBC auto differential (05/29/2025 2:27 PM EDT) WBC 7.9 4.8 - 10.8 K/mcL LAB HEMETOLOGY METHOD 05/29/2025 6:38 PM EDT [facility] RBC 4.60 3.80 - 4.80 M/mcL LAB HEMETOLOGY METHOD 05/29/2025 6:38 PM EDT [facility] Hemoglobin 14.3 11.5 - 16.0 g/dL LAB HEMETOLOGY METHOD 05/29/2025 6:38 PM EDT [facility] Hematocrit 41.8 35.0 - 47.0 % LAB HEMETOLOGY METHOD 05/29/2025 6:38 PM EDT [facility] MCV 91.1 79.0 - 98.0 FL LAB HEMETOLOGY METHOD 05/29/2025 6:38 PM EDT [facility] MCH 31.2 27.0 - 32.0 pcg LAB HEMETOLOGY METHOD 05/29/2025 6:38 PM EDT [facility] MCHC 34.2 32.0 - 37.0 g/dL LAB HEMETOLOGY METHOD 05/29/2025 6:38 PM EDT [facility] RDW 11.9 11.0 - 15.0 % LAB HEMETOLOGY METHOD 05/29/2025 6:38 PM EDT [facility] Platelets 269 130 - 400 K/mcL LAB HEMETOLOGY METHOD 05/29/2025 6:38 PM EDT [facility] MPV 11.6(H) 7.0 - 11.0 FL LAB [facility]OLOG[facility] NRBC 0.0 <1.0 % LAB HEMETOLOGY METHOD 05/29/2025 6:38 PM [facility] NRBC Absolute 0.00 <0.10 K/mcL LAB HEMETOLOGY METHOD 05/29/2025 6:38 PM [facility] Neutrophils Relative 65.5 % LAB HEMETOLOGY METHOD 05/29/2025 6:38 PM [facility] Lymphocytes Relative 25.4 % LAB HEMETOLOGY METHOD 05/29/2025 6:38 PM [facility] Monocytes Relative 5.2 % LAB HEMETOLOGY METHOD 05/29/2025 6:38 PM [facility] Eosinophils Relative 2.5 % LAB HEMETOLOGY METHOD 05/29/2025 6:38 PM [facility] Basophils Relative 0.9 % LAB HEMETOLOGY METHOD 05/29/2025 6:38 PM [facility] Immature Granulocytes Relative 0.5 % LAB HEMETOLOGY METHOD 05/29/2025 6:38 PM [facility] Neutrophils Absolute 5.19 1.50 - 7.00 K/mcL LAB HEMETOLOGY METHOD 05/29[facility]2025 6:[facility] Lymphocytes Absolute 2.01 1.00 - 5.00 K/mcL LAB HEMETOLOGY METHOD 05/29/2025 6:[facility] Monocytes Absolute 0.41 0.20 - 1.00 K/mcL LAB HEMETOLOGY METHOD 05/29/2025 6:38 PM [facility] Eosinophils Absolute 0.20 0.00 - 0.50 K/mcL LAB HEMETOLOGY METHOD 05/29/2025 6:38 PM EDT [facility] Basophils Absolute 0.07 0.00 - 0.20 K/mcL LAB HEMETOLOGY METHOD 05/29/2025 6:38 PM EDT [facility] Immature Granulocytes Absolute 0.04(H) 0.00 - 0.03 K/mcL LAB HEMETOLOGY METHOD 05/29/2025 6:38 PM EDT [facility] Blood Venous blood specimen / Unknown Venipuncture / Unknown 05/29/2025 2:27 PM EDT 05/29/2025 2:27 PM EDT She Beard NP LAB BLOOD ORDERABLES Final Resu lt Performing Organization Address City/[facility]/ZIP Co de Phone Number [facility] [address] [place] [address], [place] [phone] * Iron and TIBC (05/29/2025 2:27 PM EDT) [facility] Iron 98 40 - 150 mcg/dL LAB CHEMISTRY METHOD 05/29/2025 7:08 PM EDT [facility] TIBC 364 250 - 450 mcg/dL LAB CHEMISTRY METHOD 05/29/2025 7:08 PM EDT [facility] Iron Saturation 27 15 - 50 % LAB CHEMISTRY METHOD 05/29/2025 7:08 PM EDT [facility] Blood Venous blood specimen / Unknown Venipuncture / Unknown 05/29/2025 2:27 PM EDT 05/29/2025 2:27 PM EDT She Beard NP LAB BLOOD ORDERABLES Final Resu lt [facility] [address] [place] [address], [place] [phone] * Borrelia burgdorferi antibody (05/29/2025 2:27 PM EDT) [facility] Lyme Ab Negative Negative LAB CHEMISTRY METHOD 05/30/2025 9:11 AM EDT [facility] Comment: No laboratory evidence of infection with B. burgdorferi (Lyme disease). Negative results may occur in patients recently infected (<=14 days) with B. burgdorferi. If recent infection is suspected, repeat testing on a new sample collected in 7- 14 days is recommended. Blood Venous blood specimen / Unknown Venipuncture / Unknown 05/29/2025 2:27 PM EDT 05/29/2025 2:27 PM EDT [facility] LAB BLOOD ORDERABLES Final Resu lt Performing Organization Address City/[facility]/ZIP Co de Phone Number [facility] [address] [place] [address], [place] [phone] * (ABNORMAL) Vitamin D 25 hydroxy (05/29/2025 2:27 PM EDT) Vit D, 25-Hydroxy 28.6(L) 30.0 - 80.0 ng/mL LAB CHEMISTRY METHOD 05/29/2025 7:33 PM EDT [facility] Blood Venous blood specimen / Unknown Venipuncture / Unknown 05/29/2025 2:27 PM EDT 05/29/2025 2:27 PM EDT She Beard LAB BLOOD ORDERABLES Final Resu lt Performing Organization Address City/[facility]/ZIP Co de Phone Number [facility] [address] [place] [address], [place] [phone] * Sedimentation rate (05/29/2025 2:27 PM EDT) Sed Rate 7 0 - 20 mm/hr LAB HEMETOLOGY METHOD 05/29/2025 6:32 PM EDT [facility] Blood Venous blood specimen / Unknown Venipuncture / Unknown 05/29/2025 2:27 PM EDT 05/29/2025 2:27 PM EDT She Jeanti [employer] LAB BLOOD ORDERABLES Final Resu lt [facility] [address] [place] [address], [place] [phone] * Rheumatoid factor (05/29/2025 2:27 PM EDT) [facility] Rheumatoid Factor <10.0 <15.0 I Unit/mL LAB CHEMISTRY METHOD 05/29/2025 7:06 PM EDT [facility] Blood Venous blood specimen / Unknown Venipuncture / Unknown 05/29/2025 2:27 PM EDT 05/29/2025 2:27 PM EDT She Jeanti [employer] LAB BLOOD ORDERABLES Final Resu lt Performing Organization Address City/[facility]/ZIP Co de Phone Number [facility] [address] [place] [address], [place] [phone] * Hemoglobin A1c (05/29/2025 2:27 PM EDT) [facility] Hemoglobin A1C 5.6 <6.5 % LAB CHEMISTRY METHOD 05/29/2025 8:57 PM EDT [facility] Mean Bld Glu Estim. 114 mg/dL LAB CHEMISTRY METHOD 05/29/2025 8:57 PM EDT [facility] Blood Venous blood specimen / Unknown Venipuncture / Unknown 05/29/2025 2:27 PM EDT 05/29/2025 2:27 PM EDT She Jeanti [employer] LAB BLOOD ORDERABLES Final Resu lt [facility] [address] [place] [address], [place] [phone] * Annual BMP Blood Test (03/02/2024) [facility] Annual BMP Blood Test Abstracted [facility] Provider HEALTH MAINTENANCE Final Result * HIV Screening (07/22/2023) [facility] HIV Screening Abstracted [facility] Provider HEALTH MAINTENANCE Final Result * Hepatitis C Screening (07/22/2023) [facility] Hepatitis C Screening Abstracted [facility] Provider HEALTH MAINTENANCE Final Result * Cervical Cancer Screening: HPV (11/17/2020) [facility] Cervical Cancer Screening: HPV Negative, abstracted [facility] Provider HEALTH MAINTENANCE Final Result * (ABNORMAL) Lipid panel (04/11/2019) [facility] LDL/HDL Ratio 3 0 - 4 Triglycerides 70 0 - 150 mg/dL Cholesterol 193 0 - 200 mg/dL HDL 58 >=40 mg/dL LDL Cholesterol 121(A) 0 - 100 mg/dL Blood Venous blood specimen / Unknown Result [facility] Provider LAB BLOOD ORDERABLES Mary l Result * Depression Screening (11/17/2018) [facility] Depression Screening Abstracted [facility] Provider HEALTH MAINTENANCE Final Result from Last 3 Months or Most Recently Relevant to Health Maintenance Insurance * Guarantor: Иван Herrera Account Type Relation to Patient Date of Phone Billing Address Personal/Family Self 1975 [phone] (Work) [address] [place] [address] [facility] Care Teams Food And Beverage Operations Manager Relationship Specialty Start Date End Date Maria Eugenia Smith MD [address] [facility] [place] [address] PCP - General Internal Medicine 05/27/25
== END 2025-08-07 15:46 | disposition home or self-care (01) ==
LOC: HO.HNS 13:56
PROVIDERS: PCP Internal Medicine; Referring Provider Anesthesiology; Visit Provider Physician Assistant
DX: M54.12 Radiculopathy, cervical region (principal)
CPT/HCPCS: 99204